=== PATIENT | female | born 1935 | race Caucasian/White ===

== ENCOUNTER 2021-12-18 10:30 | Emergency (ER) | payer MEDICARE, OTHER ==
[2021-12-18 11:33] LABS: #Basophils 0.1 10x3/uL (0.0-0.2); #Eosinphils 0.1 10x3/uL (0.0-0.5); #Monocytes 0.5 10x3/uL (0.0-1.1); #Neutrophils 7.2 10x3/uL (1.5-8.4); %Basophils 0.5 % (0.0-2.0); %Eosinophils 1.3 % (0.0-6.0); %Lymphocytes 14.2 % (18.0-47.0); %Monocytes 5.8 % (0.0-10.0); %Neutrophils 77.6 % (40.0-75.0); Hemoglobin 11.7 g/dL (12.0-15.5); Mean Corpuscular HGB CONC 32.8 g/dL (32.0-36.0); Mean Corpuscular Hemoglobin 28.6 pg (27.0-33.0); Mean Corpuscular Volume 87.3 fl (81.6-98.3); Mean Platelet Volume 10.4 fl (7.4-10.4); Platelet Count 316 10x3/uL (150-450); RBC Distribution Width 13.4 % (11.5-14.5); Red Blood Cell (RBC) Count 4.09 10x6/uL (3.90-5.03); White Blood Cell (WBC) Count 9.3 10x3/uL (3.5-10.5)
[2021-12-18 11:50] LABS: ALT (SGPT) 16 U/L (8-55); AST (SGOT) 16 U/L (5-34); Alkaline Phosphatase 57 U/L (40-110); Anion Gap 16 mmol/L (10-20); BUN (Urea Nitrogen) 21 mg/dL (9.8-20.1); Bilirubin, Total 0.8 mg/dL (0.2-1.2); Calc. Creatinine Clearance 0 mL/min (70-130); Calcium 9.6 mg/dL (7.8-10.44); Carbon Dioxide 22 mmol/L (23-31); Chloride 96 mmol/L (98-107); Glucose 282 mg/dL (83-110); Potassium 4.3 mmol/L (3.5-5.1); Sodium 130 mmol/L (136-145)
[2021-12-18] MEDS ORDERED: Ketorolac Tromethamine 30 MG/ML VIAL ONE (12:24)
[2021-12-18 12:54] LABS: Bilirubin Neg (Negative); Blood, Urine Negative (Negative); Clarity Clear (Clear); Glucose, Urine (Dipstick) 250 mg/dL (Negative); Ketone, Urine Negative (Negative); Leukocyte Negative (Negative); Nitrite Negative (Negative); Protein, Urine (Dipstick) 15 mg/dl (Neg-Trace); Specific Gravity, Urine 1.015 (1.002-1.036); Urobilinogen Normal mg/dL (Less than 2)
[2021-12-18] MEDS ORDERED: Diazepam 5 MG TAB ONE (14:38)
== END 2021-12-18 15:20 | disposition home or self-care (01) ==
LOC: CSHERS 10:30
DX: G89.29 Other chronic pain (principal); M54.6 Pain in thoracic spine; E11.9 Type 2 diabetes mellitus without complications; I10 Essential (primary) hypertension; E78.5 Hyperlipidemia, unspecified; Z86.16 Personal history of COVID-19
CPT/HCPCS: 51701; 80053; 81003; 85025; 93005; 96374; J1885

== ENCOUNTER 2023-08-06 14:35 | Inpatient (IN) | payer MEDICARE, OTHER ==
[2023-08-06 15:34] LABS: #Eosinphils 0.2 10x3/uL (0.0-0.5); #Monocytes 0.4 10x3/uL (0.0-1.1); #Neutrophils 12.2 10x3/uL (1.5-8.4); %Basophils 0.2 % (0.0-2.0); %Eosinophils 1.2 % (0.0-6.0); %Lymphocytes 6.6 % (18.0-47.0); %Monocytes 2.8 % (0.0-10.0); %Neutrophils 88.3 % (40.0-75.0); Hematocrit 31.7 % (34.9-44.5); Hemoglobin 10.3 g/dL (12.0-15.5); Mean Corpuscular HGB CONC 32.5 g/dL (32.0-36.0); Mean Corpuscular Hemoglobin 27.8 pg (27.0-33.0); Mean Corpuscular Volume 85.4 fl (81.6-98.3); Mean Platelet Volume 9.5 fl (7.4-10.4); Platelet Count 521 10x3/uL (150-450); RBC Distribution Width 13.9 % (11.5-14.5); Red Blood Cell (RBC) Count 3.71 10x6/uL (3.90-5.03); White Blood Cell (WBC) Count 13.9 10x3/uL (3.5-10.5)
[2023-08-06 15:51] LABS: ALT (SGPT) 14 U/L (8-55); AST (SGOT) 19 U/L (5-34); Albumin 3.6 g/dL (3.4-4.8); Alkaline Phosphatase 72 U/L (40-110); Anion Gap 20 mmol/L (10-20); BUN (Urea Nitrogen) 29 mg/dL (9.8-20.1); Bilirubin, Total 0.4 mg/dL (0.2-1.2); Calc. Creatinine Clearance 0 mL/min (70-130); Calcium 8.6 mg/dL (7.8-10.44); Carbon Dioxide 22 mmol/L (23-31); Chloride 97 mmol/L (98-107); Estimated GFR 54; Globulin 3.8 g/dL (2.4-3.5); Glucose 123 mg/dL (83-110); Potassium 3.9 mmol/L (3.5-5.1); Protein, Total 7.4 g/dL (5.8-8.1); Sodium 135 mmol/L (136-145)
[2023-08-06] MEDS ORDERED: cefTRIAXone (ROCEPHIN) 1 GM VIAL ONE (16:06)
[2023-08-06 17:43] LABS: Bilirubin Neg (Negative); Blood, Urine 50 (Negative); Clarity Slightly Cloudy (Clear); Glucose, Urine (Dipstick) Normal (Negative); Ketone, Urine Negative (Negative); Leukocyte 500 (Negative); Nitrite Positive (Negative); Protein, Urine (Dipstick) 100 mg/dl (Neg-Trace); Specific Gravity, Urine 1.025 (1.005-1.030); Urobilinogen Normal mg/dL (Less than 2)
[2023-08-06] MEDS ORDERED: HYDROcodone/Acetaminophen 5/325 mg Tablet PO PRN (17:53)
[2023-08-06] MEDS ORDERED: Ondansetron PF 4 MG/2 ML Vial IVP PRN (17:53)
[2023-08-06] MEDS ORDERED: Dextrose 50% Abboject 50 ML SYRINGE SLOW IVP PRN (17:57)
[2023-08-06] MEDS ORDERED: Glucagon 1 MG/ML KIT IM PRN (17:57)
[2023-08-06] MEDS ORDERED: Dextrose 5% in Water 1,000 ML IV PRN (17:57)
[2023-08-06 18:19] LABS: Bacteria/HPF 4+ HPF (None Seen); CAUTI Indications for Culture Alt mental st,lethar
[2023-08-06 18:20] LABS: WBC/HPF Greater than 50 HPF (0-3)
[2023-08-06 18:23] LABS: Urine Culture Reflex Yes Yes
[2023-08-06 18:32] LABS: SARS-CoV-2 NAA Rapid Test Not Detected (NotDetected)
[2023-08-06 22:52] VITALS: BMI 21.2
[2023-08-06] MEDS: Lisinopril 10 MG TAB PO SCH (23:03)
[2023-08-06] MEDS: Gabapentin 100 MG CAP PO SCH (23:03)
[2023-08-07] MEDS: Acetaminophen 325 MG TAB PO PRN ×2 (02:13→22:33)
[2023-08-07 04:01] LABS: #Eosinphils 0.2 10x3/uL (0.0-0.5); #Monocytes 0.6 10x3/uL (0.0-1.1); #Neutrophils 5.9 10x3/uL (1.5-8.4); %Basophils 0.2 % (0.0-2.0); %Eosinophils 2.1 % (0.0-6.0); %Lymphocytes 15.9 % (18.0-47.0); %Monocytes 7.2 % (0.0-10.0); %Neutrophils 73.4 % (40.0-75.0); Hematocrit 26.8 % (34.9-44.5); Hemoglobin 8.8 g/dL (12.0-15.5); Mean Corpuscular HGB CONC 32.8 g/dL (32.0-36.0); Mean Corpuscular Hemoglobin 27.9 pg (27.0-33.0); Mean Corpuscular Volume 85.1 fl (81.6-98.3); Mean Platelet Volume 9.8 fl (7.4-10.4); Platelet Count 440 10x3/uL (150-450); Red Blood Cell (RBC) Count 3.15 10x6/uL (3.90-5.03); White Blood Cell (WBC) Count 8.1 10x3/uL (3.5-10.5)
[2023-08-07 04:11] LABS: Anion Gap 12 mmol/L (10-20); BUN (Urea Nitrogen) 23 mg/dL (9.8-20.1); Calc. Creatinine Clearance 46 mL/min (70-130); Calcium 7.9 mg/dL (7.8-10.44); Carbon Dioxide 25 mmol/L (23-31); Chloride 98 mmol/L (98-107); Estimated GFR 77; Glucose 265 mg/dL (83-110); Potassium 3.3 mmol/L (3.5-5.1); Sodium 132 mmol/L (136-145)
[2023-08-07] MEDS: HumaLOG 300 UNITS/3 ML VIAL SC PRN ×2 (06:07→12:38)
[2023-08-07] MEDS ORDERED: FLU VACC QS2023(65UP)/MF59C/PF 60 MCG/0.5 ML SYRINGE IM ONE (09:00)
[2023-08-07] MEDS: Gabapentin 100 MG CAP PO SCH ×2 (09:42→20:29)
[2023-08-07] MEDS: cefTRIAXone\\ROCEPHIN 1 GM in Sodium Chloride 0.9% 100 ML IVPB SCH (09:42)
[2023-08-07] MEDS: Lisinopril 10 MG TAB PO SCH ×2 (09:42→20:30)
[2023-08-07] MEDS ORDERED: Potassium Chloride 20 MEQ TAB PO SCH (10:15)
[2023-08-07] MEDS ORDERED: Lantus 1000 UNITS/10 ML VIAL SC SCH (10:15)
[2023-08-07] MEDS: tiZANidine HCl 4 MG TAB PO SCH ×2 (15:38→20:30)
[2023-08-08] MEDS: HumaLOG 300 UNITS/3 ML VIAL SC PRN ×2 (00:46→11:51)
[2023-08-08 03:42] LABS: #Eosinphils 0.4 10x3/uL (0.0-0.5); #Monocytes 0.5 10x3/uL (0.0-1.1); #Neutrophils 3.1 10x3/uL (1.5-8.4); %Basophils 0.5 % (0.0-2.0); %Eosinophils 6.8 % (0.0-6.0); %Lymphocytes 33.7 % (18.0-47.0); %Monocytes 8.4 % (0.0-10.0); Hematocrit 26.6 % (34.9-44.5); Hemoglobin 8.6 g/dL (12.0-15.5); Mean Corpuscular HGB CONC 32.3 g/dL (32.0-36.0); Mean Corpuscular Hemoglobin 27.7 pg (27.0-33.0); Mean Corpuscular Volume 85.5 fl (81.6-98.3); Mean Platelet Volume 9.8 fl (7.4-10.4); Platelet Count 430 10x3/uL (150-450); RBC Distribution Width 13.9 % (11.5-14.5); Red Blood Cell (RBC) Count 3.11 10x6/uL (3.90-5.03); White Blood Cell (WBC) Count 6.3 10x3/uL (3.5-10.5)
[2023-08-08 03:53] LABS: Anion Gap 15 mmol/L (10-20); BUN (Urea Nitrogen) 18 mg/dL (9.8-20.1); Calc. Creatinine Clearance 50 mL/min (70-130); Carbon Dioxide 22 mmol/L (23-31); Chloride 97 mmol/L (98-107); Estimated GFR 84; Glucose 155 mg/dL (83-110); Sodium 130 mmol/L (136-145)
[2023-08-08] MEDS: Acetaminophen 325 MG TAB PO PRN (06:55)
[2023-08-08] MEDS: Lisinopril 10 MG TAB PO SCH (08:51)
[2023-08-08] MEDS: Gabapentin 100 MG CAP PO SCH (08:52)
[2023-08-08] MEDS: tiZANidine HCl 4 MG TAB PO SCH (08:52)
[2023-08-08] MEDS ORDERED: Lantus 1000 UNITS/10 ML VIAL SC SCH (09:00)
[2023-08-08] MEDS ORDERED: Sodium Chloride 0.9% 500 ML IV SCH (09:00)
[2023-08-08 11:26] VITALS: TEMP 98.2
[2023-08-08] MEDS: cefTRIAXone\\ROCEPHIN 1 GM in Sodium Chloride 0.9% 100 ML IVPB SCH (11:42)
[2023-08-08 15:11] VITALS: BP 182/79
== END 2023-08-08 15:17 | DRG 690 ==
LOC: CSHERS 14:35 → SUATTDRO 14:35 → INTOOBSV 17:50 → CSHTELE 17:50 → OBSVTOIN 08-08 08:47
PROVIDERS: ADMIT Internal Medicine; ATTEND Internal Medicine
DX: N39.0 Urinary tract infection, site not specified (principal); I10 Essential (primary) hypertension; R53.1 Weakness; E86.0 Dehydration; E11.9 Type 2 diabetes mellitus without complications; Z98.890 Other specified postprocedural states; Z79.899 Other long term (current) drug therapy; Z88.7 Allergy status to serum and vaccine; Z88.8 Allergy status to other drugs, medicaments and biological substances; Z88.2 Allergy status to sulfonamides; Z79.84 Long term (current) use of oral hypoglycemic drugs; Z11.52 Encounter for screening for COVID-19; Z88.0 Allergy status to penicillin
CPT/HCPCS: 36415; 36416; 71045; 72125; 80048; 80053; 81001; 84484; 85025; 87077; 87086; 87633; 93005; 96372; 96376; G0378; J0696; J1650; J1815; J3490; J7030

== ENCOUNTER 2023-08-13 05:53 | Emergency (ER) | payer MEDICARE, OTHER ==
[2023-08-13 06:35] LABS: #Eosinphils 0.1 10x3/uL (0.0-0.5); #Monocytes 0.4 10x3/uL (0.0-1.1); #Neutrophils 4.4 10x3/uL (1.5-8.4); %Basophils 0.4 % (0.0-2.0); %Eosinophils 0.9 % (0.0-6.0); %Lymphocytes 36.6 % (18.0-47.0); %Monocytes 5.5 % (0.0-10.0); %Neutrophils 55.1 % (40.0-75.0); Hematocrit 33.3 % (34.9-44.5); Hemoglobin 10.7 g/dL (12.0-15.5); Mean Corpuscular HGB CONC 32.1 g/dL (32.0-36.0); Mean Corpuscular Hemoglobin 27.4 pg (27.0-33.0); Mean Corpuscular Volume 85.4 fl (81.6-98.3); Platelet Count 547 10x3/uL (150-450)
[2023-08-13 06:37] LABS: Bilirubin Neg (Negative); Blood, Urine Negative (Negative); Clarity Clear (Clear); Glucose, Urine (Dipstick) Normal (Negative); Ketone, Urine Negative (Negative); Leukocyte 100 (Negative); Nitrite Negative (Negative); Protein, Urine (Dipstick) 30 mg/dl (Neg-Trace); Specific Gravity, Urine 1.015 (1.005-1.030); Urobilinogen Normal mg/dL (Less than 2)
[2023-08-13 06:46] LABS: CAUTI Indications for Culture Alt mental st,lethar; WBC/HPF 21-50 HPF (0-3)
[2023-08-13 06:48] LABS: RBC/HPF 0-3 HPF (0-3); Squamous Epithelial 0-3 HPF (0-3)
[2023-08-13 06:48] LABS: ALT (SGPT) 10 U/L (8-55); AST (SGOT) 16 U/L (5-34); Alkaline Phosphatase 62 U/L (40-110); Anion Gap 16 mmol/L (10-20); BUN (Urea Nitrogen) 17 mg/dL (9.8-20.1); Bilirubin, Total 0.5 mg/dL (0.2-1.2); Calc. Creatinine Clearance 0 mL/min (70-130); Calcium 9.3 mg/dL (7.8-10.44); Carbon Dioxide 21 mmol/L (23-31); Chloride 99 mmol/L (98-107); Estimated GFR 74; Globulin 3.5 g/dL (2.4-3.5); Glucose 187 mg/dL (83-110); Lipase 60 U/L (8-78); Potassium 4.4 mmol/L (3.5-5.1); Protein, Total 7.5 g/dL (5.8-8.1); Sodium 132 mmol/L (136-145)
[2023-08-13 06:49] LABS: Bacteria/HPF None Seen HPF (None Seen)
[2023-08-13 06:51] LABS: Urine Culture Reflex Yes Yes
[2023-08-13] MEDS ORDERED: cefTRIAXone (ROCEPHIN) 1 GM VIAL ONE (07:03)
[2023-08-13] MEDS ORDERED: Lidocaine 4% Patch TD SCH (07:30)
[2023-08-13] MEDS ORDERED: Acetaminophen 500 MG TAB ONE (08:08)
[2023-08-13 09:41] LABS: Lactic Acid 4.8 mmol/L (0.5-2.2)
== END 2023-08-13 09:20 | disposition home or self-care (01) ==
LOC: CSHERS 05:53
DX: N39.0 Urinary tract infection, site not specified (principal); E11.649 Type 2 diabetes mellitus with hypoglycemia without coma; I10 Essential (primary) hypertension; E78.5 Hyperlipidemia, unspecified; Z79.899 Other long term (current) drug therapy; Z79.84 Long term (current) use of oral hypoglycemic drugs; Z79.4 Long term (current) use of insulin
CPT/HCPCS: 36415; 36416; 71045; 80053; 81001; 83605; 83690; 85025; 87086; 96365; J0696